=== PATIENT | female | born 1945 | race Caucasian/White ===

== ENCOUNTER 2018-06-20 07:34 | Day surgery (SDC) | payer OTHER, BC ==
[2018-06-17 16:13] VITALS: BMI 31.4
[2018-06-20] MEDS ORDERED: PROPOFOL 20 ML ONE ×5 (08:59)
[2018-06-20] MEDS ORDERED: LIDOCAINE HCL/PF 2% SDV 5ML VIAL ONE (08:59)
[2018-06-20 10:14] VITALS: TEMP 97.9
[2018-06-20] MEDS ORDERED: CITRIC ACID/SODIUM CITRATE 30 ML UNIT-DOSE CUP ONE (10:19)
[2018-06-20] MEDS ORDERED: SIMETHICONE 80 MG TAB.CHEW (FP) ONE (10:22)
[2018-06-20 10:41] VITALS: PULSE 77
[2018-06-20 13:16] VITALS: BP 123/78
--- NOTE | 2018-07-05 16:13 | PATH ---
Surgical Pathology Report Patient Name: GYPSY PALACIO [facility]. Rec. #: [id number] /Age/Gender: 1945 (Age: 72) / F Account: [id number] Location: [facility]-ENDOSCOPY Taken: 06/20/2018 Received: 06/20/2018 Reported: 07/05/2018 Physicians: Nidia Riley M.D. Specimen(s) Received BX CECAL POLYP Clinical History Adenoma surveillance Postoperative diagnosis: Colon polyps Final Diagnosis CECUM, POLYP, BIOPSY: COLONIC MUCOSA SHOWING MILD SURFACE HYPERPLASTIC CHANGE. Electronically Signed Chloe Moran M.D. Gross Description Received in formalin, labeled "biopsy cecal polyp" are 5 richey, irregular portions of soft tissue ranging from 0.1-0.3 cm. in greatest dimension. The specimens are submitted in toto in one cassette. 06/20/201806/20/2018
== END 2018-06-20 11:30 | disposition home or self-care (01) ==
LOC: JASU-ENDO 07:34
PROVIDERS: ATTEND Internal Medicine Gastroenterology
PROC: 0DBH8ZX Excision of Cecum, Via Natural or Artificial Opening Endoscopic, Diagnostic (ICD-10-PCS; principal; 2018-06-20 09:00)
DX: Z12.11 Encounter for screening for malignant neoplasm of colon (principal); Z86.010 Personal history of colon polyps; D12.0 Benign neoplasm of cecum; K57.30 Diverticulosis of large intestine without perforation or abscess without bleeding; K64.8 Other hemorrhoids; K62.3 Rectal prolapse; J44.9 Chronic obstructive pulmonary disease, unspecified; J45.998 Other asthma; E66.9 Obesity, unspecified; G47.30 Sleep apnea, unspecified
CPT/HCPCS: 88305-TC

== ENCOUNTER 2019-09-01 06:39 | Day surgery (SDC) | payer OTHER, BC ==
[2019-08-31 14:57] VITALS: BMI 32.2
[2019-09-01 07:38] VITALS: TEMP 98.2
[2019-09-01 17:12] VITALS: BP 140/68; PULSE 78
--- NOTE | 2019-09-05 09:56 | PATH ---
Surgical Pathology Report Patient Name: GYPSY PALACIO [facility]. Rec. #: [id number] /Age/Gender: 1945 (Age: 74) / F Account: [id number] [facility] Taken: 09/01/2019 Received: 09/01/2019 Reported: 09/05/2019 Physicians: Nidia Riley M.D. Specimen(s) Received A: GASTRIC ANTRUM B: GE JUCTION/SCHATZKI'S RING C: MID ESOPHAGUS Clinical History Dysphagia, cough, acid reflux Postoperative diagnosis: GERD, Schatzki's ring Final Diagnosis A. GASTRIC ANTRUM, BIOPSY: GASTRIC MUCOSA WITH CHRONIC GASTRITIS AND REACTIVE GASTROPATHY. IMMUNOSTAIN FOR H. PYLORI IS NEGATIVE. NEGATIVE FOR INTESTINAL METAPLASIA. B. GE JUNCTION / SCHATZKI'S RING, BIOPSY: GASTROESOPHAGEAL JUNCTIONAL MUCOSA WITH REFLUX ESOPHAGITIS. NEGATIVE FOR INTESTINAL METAPLASIA. C. MID ESOPHAGUS, BIOPSY: ESOPHAGEAL MUCOSA WITH NO SIGNIFICANT PATHOLOGIC CHANGE. NO HISTOLOGIC EVIDENCE OF EOSINOPHILIC ESOPHAGITIS. Electronically Signed Ho Ervin M.D. Gross Description A. Received in formalin, labeled "gastric antrum" is a richey, irregular soft tissue measuring 0.3 cm. in greatest dimension. The specimen is submitted in toto in one cassette. B. Received in formalin, labeled "GE junction/Schatzki's ring" are 4 richey soft tissue measuring 0.2 to 0.3 cm. in greatest dimension. The specimen is submitted in toto in one cassette. C. Received in formalin, labeled "mid esophagus" are 2 richey, irregular soft tissue measuring 0.1 to 0.2 cm. in greatest dimension. The specimen is submitted in toto in one cassette. __ KWS/09/01/2019 christinaki/09/01/2019
== END 2019-09-01 09:45 | disposition home or self-care (01) ==
LOC: JASU-ENDO 06:39
PROVIDERS: ATTEND Internal Medicine Gastroenterology
PROC: 0DB68ZX Excision of Stomach, Via Natural or Artificial Opening Endoscopic, Diagnostic (ICD-10-PCS; 2019-09-01)
PROC: 0DB28ZX Excision of Middle Esophagus, Via Natural or Artificial Opening Endoscopic, Diagnostic (ICD-10-PCS; 2019-09-01)
PROC: 0DB38ZX Excision of Lower Esophagus, Via Natural or Artificial Opening Endoscopic, Diagnostic (ICD-10-PCS; 2019-09-01)
PROC: 0DB48ZX Excision of Esophagogastric Junction, Via Natural or Artificial Opening Endoscopic, Diagnostic (ICD-10-PCS; principal; 2019-09-01 08:00)
DX: K29.50 Unspecified chronic gastritis without bleeding (principal); K31.9 Disease of stomach and duodenum, unspecified; K21.0 Gastro-esophageal reflux disease with esophagitis; K44.9 Diaphragmatic hernia without obstruction or gangrene; G47.33 Obstructive sleep apnea (adult) (pediatric); J44.9 Chronic obstructive pulmonary disease, unspecified; I25.10 Atherosclerotic heart disease of native coronary artery without angina pectoris; E78.5 Hyperlipidemia, unspecified; I34.1 Nonrheumatic mitral (valve) prolapse; K21.9 Gastro-esophageal reflux disease without esophagitis; Z95.5 Presence of coronary angioplasty implant and graft
CPT/HCPCS: 88305-TC; 88342-TC

== ENCOUNTER 2024-10-27 13:15 | Inpatient (IN) | payer OTHER, BC ==
[2024-10-27] MEDS ORDERED: dilTIAZem HCL 125 MG/25 ML - 25 ML VIAL ONE ×2 (14:12→14:23)
[2024-10-27] MEDS: dilTIAZem HCL 50 MG/10 ML - 10 ML VIAL IVPUSH ONE (14:20)
[2024-10-27] MEDS ORDERED: dilTIAZem HCL 50 MG/10 ML - 10 ML VIAL ONE (14:23)
[2024-10-27 14:34] LABS: BASO % 0.3 % (0-2.0); EOS % 3.4 % (0-4.5); HEMATOCRIT 36.4 % (32.4-45.2); HEMOGLOBIN 12.1 GM/dL (10.7-15.3); LYMPH % 18.1 % (8-40); MCH 27.4 pg (25.7-33.7); MCHC 33.1 g/dl (32.0-36.0); MEAN CELL VOLUME 82.7 fl (80-96); NEUT % 58.2 % (42.8-82.8); PLATELET COUNT 345 10^3/uL (134-434); RBC 4.41 M/mm3 (3.60-5.2); RDW 16.8 % (11.6-15.6); WHITE BLOOD COUNT 7.6 K/mm3 (4.0-10.0)
[2024-10-27 14:40] LABS: INR 1.01 (0.83-1.09); PROTHROMBIN TIME (PATIENT) 11.4 SEC (9.7-13.0)
[2024-10-27 14:43] LABS: ACTIVATED PTT 34.6 SECONDS (25.2-36.5)
[2024-10-27 14:51] LABS: POTASSIUM 5.4 mmol/L (3.5-5.1)
[2024-10-27 14:53] LABS: CALCIUM 9.3 mg/dL (8.5-10.1)
[2024-10-27 14:54] LABS: ALBUMIN 3.4 g/dl (3.4-5.0); BLOOD UREA NITROGEN 7.4 mg/dL (7-18)
[2024-10-27 14:58] LABS: CREATININE 0.6 mg/dL (0.55-1.3)
[2024-10-27 14:59] LABS: BILIRUBIN,TOTAL 0.5 mg/dL (0.2-1); TOT PROT 6.8 g/dl (6.4-8.2)
[2024-10-27 15:03] LABS: N-TERMINAL BNP 1397.6 pg/ml (5-450)
[2024-10-27] MEDS ORDERED: CEFTRIAXONE 1 G/50 ML PREMIX 50 ML IVPB ONE (15:16)
[2024-10-27] MEDS: CEFTRIAXONE 1 GM in DEXTROSE 5%-WATER - 100 ML IVPB ONE (16:39)
[2024-10-27] MEDS ORDERED: ALBUTEROL SO4 HFA INHALER IH PRN (16:43)
[2024-10-27] MEDS ORDERED: AZITHROMYCIN IVPB 500 MG/250 ML BAG IVPB ONE (17:18)
[2024-10-27] MEDS: AZITHROMYCIN IVPB 500 MG in DEXTROSE 5%-WATER - 250 ML IVPB ONE (17:31)
[2024-10-27] MEDS: CALCIUM GLUCONATE IN NACL 1 GM/50 ML BAG IVPB ONE (18:53)
[2024-10-27] MEDS ORDERED: HEPARIN NA (PORCINE) 5,000 UNITS/ML 1ML VIAL IVPUSH PRN (19:03)
[2024-10-27] MEDS: HEPARIN SOD,PORK IN 0.45% NACL 25,000 UNITS/500 ML INFUS.BAG IVPB SCH (19:40)
[2024-10-27] MEDS: ALBUTEROL SO4 0.083% IH SOL 2.5 MG/3 ML VIAL.NEB. NEB PRN (20:07)
[2024-10-27] MEDS: FAMOTIDINE 20 MG TABLET PO SCH (21:26)
[2024-10-27] MEDS: ATORVASTATIN CA 40 MG TABLET (FP) PO SCH (21:26)
[2024-10-27] MEDS: methylPREDNISolone NA SUCC 40 MG/1 ML VIAL IVPUSH SCH (21:26)
[2024-10-27] MEDS: GABAPENTIN 100 MG CAPSULE PO SCH (21:26)
[2024-10-27] MEDS: ACETAMINOPHEN 325 MG TABLET (FP) PO SCH (21:27)
[2024-10-27] MEDS: CYCLOBENZAPRINE HCL 10 MG TABLET (FP) PO SCH (21:31)
[2024-10-27] MEDS: MAGNESIUM SULFATE IN WATER 2 GM/50 ML IVPB IVPB ONE (23:58)
[2024-10-28 00:40] LABS: MAGNESIUM 1.8 mg/dL (1.8-2.4)
[2024-10-28 00:44] LABS: PHOSPHOROUS 3.7 mg/dL (2.5-4.9)
[2024-10-28] MEDS: HEPARIN NA (PORCINE) 5,000 UNITS/ML 1ML VIAL IVPUSH PRN (02:30)
[2024-10-28 06:29] LABS: BASO % 0.1 % (0-2.0); EOS % 0.1 % (0-4.5); HEMATOCRIT 38.9 % (32.4-45.2); HEMOGLOBIN 12.7 GM/dL (10.7-15.3); LYMPH % 20.8 % (8-40); MCH 27.2 pg (25.7-33.7); MCHC 32.6 g/dl (32.0-36.0); MEAN CELL VOLUME 83.5 fl (80-96); MEAN PLT VOLUME 6.9 fl (7.5-11.1); MONO % 4.7 % (3.8-10.2); NEUT % 74.3 % (42.8-82.8); PLATELET COUNT 350 10^3/uL (134-434); RBC 4.66 M/mm3 (3.60-5.2); RDW 16.6 % (11.6-15.6)
[2024-10-28 06:53] LABS: POTASSIUM 4.2 mmol/L (3.5-5.1)
[2024-10-28 06:56] LABS: BLOOD UREA NITROGEN 10.6 mg/dL (7-18)
[2024-10-28 06:59] LABS: CREATININE 0.5 mg/dL (0.55-1.3); PHOSPHOROUS 4.2 mg/dL (2.5-4.9)
[2024-10-28] MEDS: TAMSULOSIN HCL 0.4 MG CAP PO SCH (09:07)
[2024-10-28] MEDS: metoPROLOL SUCCINATE 25 MG TAB.SR.24H (FP) PO SCH (09:07)
[2024-10-28] MEDS: MONTELUKAST NA 10 MG TABLET PO SCH (09:07)
[2024-10-28] MEDS: CEFTRIAXONE 1 G/50 ML PREMIX 50 ML IVPB SCH (09:07)
[2024-10-28] MEDS: PANTOPRAZOLE 40 MG TABLET PO SCH (09:07)
[2024-10-28] MEDS: AZITHROMYCIN 500 MG TABLET PO SCH (09:09)
[2024-10-28] MEDS: APIXABAN 5 MG TABLET PO SCH (10:00)
[2024-10-28] MEDS: dilTIAZem HCL 30 MG TABLET PO SCH (12:47)
[2024-10-28] MEDS: dilTIAZem HCL 50 MG/10 ML - 10 ML VIAL IVPUSH ONE (15:01)
[2024-10-28] MEDS: SODIUM ZIRCONIUM CYCLOSILICATE (LOKELMA) 5 GM PACKET PO ONE (17:53)
[2024-10-29] MEDS: guaiFENesin 200 MG/10 ML 10 ML UNIT-DOSE CUPS PO PRN (02:32)
[2024-10-29 07:03] LABS: BASO % 0.1 % (0-2.0); HEMATOCRIT 35.3 % (32.4-45.2); HEMOGLOBIN 11.7 GM/dL (10.7-15.3); MCH 27.8 pg (25.7-33.7); MCHC 33.2 g/dl (32.0-36.0); MEAN CELL VOLUME 83.6 fl (80-96); MEAN PLT VOLUME 6.9 fl (7.5-11.1); MONO % 7.1 % (3.8-10.2); NEUT % 78.8 % (42.8-82.8); PLATELET COUNT 393 10^3/uL (134-434); RBC 4.21 M/mm3 (3.60-5.2); RDW 16.1 % (11.6-15.6); WHITE BLOOD COUNT 8.1 K/mm3 (4.0-10.0)
[2024-10-29 07:24] LABS: ALBUMIN 3.2 g/dl (3.4-5.0); BLOOD UREA NITROGEN 17.6 mg/dL (7-18); MAGNESIUM 2.1 mg/dL (1.8-2.4)
[2024-10-29 07:27] LABS: CREATININE 0.7 mg/dL (0.55-1.3); PHOSPHOROUS 5.1 mg/dL (2.5-4.9)
[2024-10-29 07:29] LABS: BILIRUBIN,TOTAL 0.4 mg/dL (0.2-1); TOT PROT 6.7 g/dl (6.4-8.2)
[2024-10-29] MEDS: methylPREDNISolone NA SUCC 40 MG/1 ML VIAL IVPUSH SCH (09:25)
[2024-10-29] MEDS ORDERED: ALBUTEROL SO4 2.5/IPRATROPIUM 0.5 INH SOL 3 ML VIAL.NEB. NEB PRN (12:18)
[2024-10-29] MEDS: ALBUTEROL SO4 HFA INHALER IH PRN (12:27)
[2024-10-29 13:37] VITALS: BMI 32.9
[2024-10-30 07:10] LABS: HEMATOCRIT 35.1 % (32.4-45.2); HEMOGLOBIN 11.2 GM/dL (10.7-15.3); LYMPH % 25.8 % (8-40); MCH 26.8 pg (25.7-33.7); MCHC 31.9 g/dl (32.0-36.0); MEAN CELL VOLUME 83.8 fl (80-96); MEAN PLT VOLUME 6.7 fl (7.5-11.1); NEUT % 65.2 % (42.8-82.8); PLATELET COUNT 413 10^3/uL (134-434); RBC 4.18 M/mm3 (3.60-5.2); RDW 16.6 % (11.6-15.6)
[2024-10-30 07:26] LABS: POTASSIUM 5.1 mmol/L (3.5-5.1)
[2024-10-30 07:29] LABS: CALCIUM 9.1 mg/dL (8.5-10.1); MAGNESIUM 2.1 mg/dL (1.8-2.4)
[2024-10-30 07:33] LABS: CREATININE 0.6 mg/dL (0.55-1.3)
[2024-10-30 07:34] LABS: BILIRUBIN,TOTAL 0.4 mg/dL (0.2-1); TOT PROT 6.2 g/dl (6.4-8.2)
[2024-10-30] MEDS: MAGNESIUM HYDROX 2400MG/30ML ORAL SUSPENSION 30 ML CUP PO SCH (12:30)
[2024-10-30] MEDS: FUROSEMIDE 40 MG/4 ML INJECTABLE VIAL IVPUSH ONE (13:08)
[2024-10-30] MEDS: guaiFENesin/CODEINE 5 ML UNIT-DOSE CUPS PO SCH (13:08)
[2024-10-30] MEDS: ALBUTEROL SO4 2.5/IPRATROPIUM 0.5 INH SOL 3 ML VIAL.NEB. NEB SCH (15:14)
[2024-10-30] MEDS: REMDESIVIR 200 MG in SODIUM CHLORIDE 250 ML IVPB ONE (16:54)
[2024-10-30] MEDS: guaiFENesin/CODEINE 5 ML UNIT-DOSE CUPS PO PRN (16:54)
[2024-10-30] MEDS: DOXYCYCLINE HYCLATE 100 MG CAPSULE PO SCH (17:05)
[2024-10-31 07:16] LABS: BASO % 0.1 % (0-2.0); EOS % 0.3 % (0-4.5); HEMATOCRIT 36.4 % (32.4-45.2); HEMOGLOBIN 11.8 GM/dL (10.7-15.3); MCH 27.1 pg (25.7-33.7); MCHC 32.5 g/dl (32.0-36.0); MEAN CELL VOLUME 83.3 fl (80-96); MEAN PLT VOLUME 6.6 fl (7.5-11.1); MONO % 12.2 % (3.8-10.2); NEUT % 49.4 % (42.8-82.8); PLATELET COUNT 436 10^3/uL (134-434); RBC 4.37 M/mm3 (3.60-5.2); WHITE BLOOD COUNT 11.9 K/mm3 (4.0-10.0)
[2024-10-31 07:33] LABS: POTASSIUM 4.8 mmol/L (3.5-5.1)
[2024-10-31 07:35] LABS: ALBUMIN 3.1 g/dl (3.4-5.0); BLOOD UREA NITROGEN 18.2 mg/dL (7-18); CALCIUM 9.1 mg/dL (8.5-10.1); MAGNESIUM 2.1 mg/dL (1.8-2.4)
[2024-10-31 07:38] LABS: CREATININE 0.6 mg/dL (0.55-1.3); PHOSPHOROUS 4.1 mg/dL (2.5-4.9)
[2024-10-31 07:40] LABS: BILIRUBIN,TOTAL 0.3 mg/dL (0.2-1); TOT PROT 6.5 g/dl (6.4-8.2)
[2024-10-31] MEDS: REMDESIVIR 100 MG in SODIUM CHLORIDE 250 ML IVPB SCH (10:09)
[2024-10-31] MEDS ORDERED: CYCLOBENZAPRINE HCL 10 MG TABLET (FP) PO PRN (15:30)
[2024-10-31] MEDS ORDERED: guaiFENesin/CODEINE 5 ML UNIT-DOSE CUPS PO PRN (16:00)
[2024-10-31] MEDS: GABAPENTIN 100 MG CAPSULE PO SCH (22:50)
[2024-10-31] MEDS: ATORVASTATIN CA 40 MG TABLET (FP) PO SCH (22:51)
[2024-10-31] MEDS: APIXABAN 5 MG TABLET PO SCH (22:51)
[2024-10-31] MEDS: ACETAMINOPHEN 325 MG TABLET (FP) PO SCH (22:52)
[2024-10-31] MEDS: FAMOTIDINE 20 MG TABLET PO SCH (22:57)
[2024-11-01 09:06] LABS: EOS % 0.8 % (0-4.5); HEMATOCRIT 38.6 % (32.4-45.2); HEMOGLOBIN 12.7 GM/dL (10.7-15.3); MCH 26.9 pg (25.7-33.7); MCHC 32.8 g/dl (32.0-36.0); MEAN CELL VOLUME 81.9 fl (80-96); MEAN PLT VOLUME 6.8 fl (7.5-11.1); MONO % 11.2 % (3.8-10.2); PLATELET COUNT 506 10^3/uL (134-434); RBC 4.71 M/mm3 (3.60-5.2); WHITE BLOOD COUNT 12.6 K/mm3 (4.0-10.0)
[2024-11-01 09:33] LABS: POTASSIUM 4.4 mmol/L (3.5-5.1)
[2024-11-01 09:39] LABS: ALBUMIN 3.5 g/dl (3.4-5.0); CALCIUM 9.8 mg/dL (8.5-10.1)
[2024-11-01 09:40] LABS: BLOOD UREA NITROGEN 20.5 mg/dL (7-18)
[2024-11-01 09:43] LABS: CREATININE 0.6 mg/dL (0.55-1.3); PHOSPHOROUS 3.8 mg/dL (2.5-4.9)
[2024-11-01 09:44] LABS: BILIRUBIN,TOTAL 0.5 mg/dL (0.2-1); TOT PROT 6.9 g/dl (6.4-8.2)
[2024-11-01 09:53] VITALS: BP 113/59; PULSE 103; RESP 16; TEMP 98.2
[2024-11-01] MEDS: CEFTRIAXONE 1 G/50 ML PREMIX 50 ML IVPB SCH (11:00)
[2024-11-01] MEDS: TAMSULOSIN HCL 0.4 MG CAP PO SCH (11:00)
[2024-11-01] MEDS: predniSONE 20 MG TABLET (UD) PO SCH (11:00)
[2024-11-01] MEDS: PANTOPRAZOLE 40 MG TABLET PO SCH (11:00)
[2024-11-01] MEDS ORDERED: MONTELUKAST NA 10 MG TABLET PO SCH (22:00)
== END 2024-11-01 17:40 | disposition home or self-care (01) | DRG 177 ==
LOC: JER 13:15 → JERBED 15:18 → JICU 17:58 → J4S 10-31 14:58
PROVIDERS: ADMIT Internal Medicine; ATTEND Internal Medicine
PROC: XW033E5 Introduction of Remdesivir Anti-infective into Peripheral Vein, Percutaneous Approach, New Technology Group 5 (ICD-10-PCS; principal; 2024-10-30)
DX: U07.1 COVID-19 (principal); J12.82 Pneumonia due to coronavirus disease 2019; J44.0 Chronic obstructive pulmonary disease with (acute) lower respiratory infection; I50.32 Chronic diastolic (congestive) heart failure; J44.1 Chronic obstructive pulmonary disease with (acute) exacerbation; I48.91 Unspecified atrial fibrillation; E78.5 Hyperlipidemia, unspecified; K21.9 Gastro-esophageal reflux disease without esophagitis; J45.909 Unspecified asthma, uncomplicated; I25.10 Atherosclerotic heart disease of native coronary artery without angina pectoris; I35.2 Nonrheumatic aortic (valve) stenosis with insufficiency; I08.1 Rheumatic disorders of both mitral and tricuspid valves; I11.0 Hypertensive heart disease with heart failure
CPT/HCPCS: 0241U-QW; 36415; 71045-TC-FY; 80048; 80053; 82550; 83735; 83880; 84100; 84484; 85025; 85610; 85730; 86140; 87481; 87899; 93005; 93010; 93306-TC; 94640; 99291; J0248; J1644